=== PATIENT | male | born 1970 | race Caucasian/White ===

== ENCOUNTER 2017-10-26 17:58 | Emergency (ER) | payer BC, OTHER ==
[~2017-10-26] VITALS: Ht 175.3 cm; Wt 85.8 kg
[~2017-10-26 17:58] MED LIST: ETAN50IN2 SQ
[2017-10-26] MEDS ORDERED: MAGNESIUM SULFATE 1GM / D5W 1 GM BAG IV STA (18:16)
[2017-10-26] MEDS ORDERED: PROCHLORPERAZINE 5 MG/ML 2 ML VIAL IV STA (18:16)
[2017-10-26] MEDS ORDERED: DiphenhydrAMINE HCL 50 MG/ML VIAL IV STA (18:16)
[2017-10-26] MEDS ORDERED: KETOROLAC TROMETHAMINE 30 MG/ML VIAL IV STA (18:16)
[2017-10-26 18:18] VITALS: Ht 175.3 cm; Wt 85.8 kg
[2017-10-26 18:23] VITALS: O2SAT 94
[2017-10-26] MEDS ORDERED: ETAN50IN2 SC (18:36)
[2017-10-26 18:41] LABS: BASO % 0.3 %; BASO ABS # 0.06 K/uL (0-0.2); COMPLETE YES; EOS % 0.3 %; HEMATOCRIT 46.3 % (42-52); IG% 0.4 %; LYMPH % 7.5 %; LYMPH ABS # 1.41 K/uL (1.2-3.4); MEAN CELL VOLUME 92.4 fL (80-100); MEAN CORPUSCULAR HEMOGLOBIN 32.5 pg (25-34); MEAN CORPUSCULAR HGB CONC 35.2 g/dl (32-36); MEAN PLATELET VOLUME 10.3 fL (7.4-10.4); MONO % 6.5 %; PLATELET COUNT 243 K/uL (130-400); RED BLOOD COUNT 5.01 M/uL (4.7-6.1); WHITE BLOOD COUNT 18.73 K/uL (4.8-10.8)
[2017-10-26 19:02] LABS: BUN/CREATININE RATIO 10.3 (10-20); CALCIUM 8.6 mg/dl (8.5-10.1); POTASSIUM 3.2 mmol/L (3.5-5.1)
[2017-10-26 19:05] LABS: ALB/GLOB RATIO 0.8 (0.9-2)
[2017-10-26 19:06] LABS: URINE APPEARANCE CLEAR (CLEAR); URINE BILIRUBIN NEG (NEG); URINE COLOR YELLOW; URINE EPITHELIAL CELL AUTO 0-5 /lpf (0-5); URINE NITRITE NEG (NEG); URINE SPECIFIC GRAVITY 1.024 (1.000-1.030); UROBILINOGEN NEG (NEG)
[2017-10-26 19:08] LABS: MANUAL MICROSCOPIC REQUIRED? NO; REVIEW REQ? NO
--- NOTE | 2017-10-26 19:23 | DIAGNOSTIC IMAGING REPORT ---
CHEST ONE VIEW PORTABLE CLINICAL HISTORY: 47 years-old Male presenting with Pt c/o headache. TECHNIQUE: Portable upright AP view of the chest was obtained. COMPARISON: None. FINDINGS: Cardiomediastinal silhouette normal. Bandlike opacity at the right lung base. Lungs and pleural spaces otherwise clear. Osseous structures normal. Upper abdomen normal. IMPRESSION: 1. Bandlike opacity at the right lung base likely atelectasis or scarring. No convincing evidence of acute cardiopulmonary disease. Electronically signed by: Kobi Tang M.D. 10/26/2017 7:21 PM Dictated Date/Time: 10/26/2017 7:20 PM
--- NOTE | 2017-10-26 19:29 | EMERGENCY ROOM VISIT NOTE ---
History Report prepared by Rajesh: Leslie Rose Under the Supervision of: Dr. Jarvis Mills M.D. First contact with patient: 18:04 Chief Complaint: FLU LIKE SX Stated Complaint: FLU History of Present Illness The patient is a 47 year old male who presents to the Emergency Room with complaints of persistent flu symptoms starting yesterday. He has felt fatigued and has body aches. He has mostly been resting for the past 24 hours. He took Nyquil 3-4 hours ago and Dayquil this morning. He has a frontal headache which is close to the worst headache of his life. He normally does not get headaches. His states that it sounds like he has strep. He did not have a flu shot this year. He has been on Enbrel for psoriasis since 2002. Source of History: patient, spouse/significant other Onset: yesterday Position: other (global) Quality: other (flu symptoms) Timing: other (persistent) Associated Symptoms: + headache, + fatigue Note: Pt reports body aches. Review of Systems See HPI for pertinent positives & negatives. A total of 10 systems reviewed and were otherwise negative. Past Medical & Surgical Medical Problems: (1) Asthma Surgical Problems: (1) History of bilateral inguinal herniorrhaphies Family History Unknown Social History Smoking Status: Current Every Day Smoker Alcohol Use: occasionally Marital Status: Occupation Status: employed Current/Historical Medications Scheduled Amoxicillin & Pot Clavulanate (Augmentin 875-125 mg), 1 TAB PO BID Etanercept (Enbrel), 50 MG SC [id number] Allergies Coded Allergies: No Known Allergies (Unverified , 08/04/15) Physical Exam Vital Signs Date Time Temp Pulse Resp B/P (MAP) Pulse Ox O2 Delivery O2 Flow Rate FiO2 10/26/17 20:10 37.4 90 18 134/83 98 10/26/17 19:56 90 18 134/83 98 Room Air 10/26/17 18:23 94 Room Air 10/26/17 18:00 37.4 125 20 143/84 94 Room Air Physical Exam GENERAL: Patient is a healthy-appearing well-nourished male HEAD: Normocephalic atraumatic EYES: Ocular movements intact pupils equal and react to light OROPHARYNX mucous membranes are moist no exudates present no erythema or edema present NECK: Supple no nuchal rigidity. No evidence of meningitis or encephalitis on exam. CHEST: Good equal expansion LUNGS: Clear and equal to auscultation CARDIAC: Normal S1 and S2 ABDOMEN: Soft nontender no guarding BACK: No CVA tenderness EXTREMITIES: No pain upon palpation normal muscle strength in all groups no clubbing cyanosis or edema NEURO: Patient is following commands and answering questions appropriately. Alert and oriented x3 Cranial Nerves 2-12 grossly intact Medical Decision & Procedures ER Provider Diagnostic Interpretation: X-ray results as stated below per interpretation by me and the radiologist. Radiology results as stated below per my review and radiologist interpretation: CHEST ONE VIEW PORTABLE CLINICAL HISTORY: 47 years-old Male presenting with Pt c/o headache. TECHNIQUE: Portable upright AP view of the chest was obtained. COMPARISON: None. FINDINGS: Cardiomediastinal silhouette normal. Bandlike opacity at the right lung base. Lungs and pleural spaces otherwise clear. Osseous structures normal. Upper abdomen normal. IMPRESSION: 1. Bandlike opacity at the right lung base likely atelectasis or scarring. No convincing evidence of acute cardiopulmonary disease. Electronically signed by: Kobi Tang M.D. 10/26/2017 7:21 PM Dictated Date/Time: 10/26/2017 7:20 PM HEAD WITHOUT CONTRAST (CT) CLINICAL HISTORY: 47 years-old Male presenting with Pt c/o headache. TECHNIQUE: Multidetector CT imaging of the head was performed without the use of intravenous contrast. IV contrast: None. A dose lowering technique was used consistent with the principles of ALARA (as low as reasonably achievable). COMPARISON: None. CT DOSE (mGy.cm): The estimated cumulative dose is 1225.46 mGy.cm. FINDINGS: Bridge Expert topogram: Unremarkable. Ventricles and sulci normal in size. Brain parenchyma normal in appearance with preserved scales-white differentiation. No mass effect or midline shift. No hemorrhage or acute territorial infarct. No extra-axial fluid collection. Paranasal sinuses and mastoid air cells clear. Calvarium intact. IMPRESSION: 1. No acute intracranial abnormality. Electronically signed by: Kobi Tang M.D. 10/26/2017 7:36 PM Dictated Date/Time: 10/26/2017 7:35 PM Laboratory Results 10/26/17 18:30 Red Blood Count 5.01, Mean Corpuscular Volume 92.4, Mean Corpuscular Hemoglobin 32.5, Mean Corpuscular Hemoglobin Concent 35.2, Mean Platelet Volume 10.3, Neutrophils (%) (Auto) 85.0, Lymphocytes (%) (Auto) 7.5, Monocytes (%) (Auto) 6.5, Eosinophils (%) (Auto) 0.3, Basophils (%) (Auto) 0.3, Neutrophils # (Auto) 15.91, Lymphocytes # (Auto) 1.41, Monocytes # (Auto) 1.22, Eosinophils # (Auto) 0.06, Basophils # (Auto) 0.06 10/26/17 18:30 Test 10/26/17 18:14 10/26/17 18:30 10/26/17 18:50 Influenza Type A (RT-PCR) Neg for Influ A (NEG) Influenza Type A Antigen Neg for Influ A (NEG) Influenza Type B Antigen Neg for Influ B (NEG) Influenza Type B (RT-PCR) Neg for Influ B (NEG) White Blood Count 18.73 K/uL (4.8-10.8) Red Blood Count 5.01 M/uL (4.7-6.1) Hemoglobin 16.3 g/dL (14.0-18.0) Hematocrit 46.3 % (42-52) Mean Corpuscular Volume 92.4 fL (80-100) Mean Corpuscular Hemoglobin 32.5 pg (25-34) Mean Corpuscular Hemoglobin Concent 35.2 g/dl (32-36) Platelet Count 243 K/uL (130-400) Mean Platelet Volume 10.3 fL (7.4-10.4) Neutrophils (%) (Auto) 85.0 % Lymphocytes (%) (Auto) 7.5 % Monocytes (%) (Auto) 6.5 % Eosinophils (%) (Auto) 0.3 % Basophils (%) (Auto) 0.3 % Neutrophils # (Auto) 15.91 K/uL (1.4-6.5) Lymphocytes # (Auto) 1.41 K/uL (1.2-3.4) Monocytes # (Auto) 1.22 K/uL (0.11-0.59) Eosinophils # (Auto) 0.06 K/uL (0-0.5) Basophils # (Auto) 0.06 K/uL (0-0.2) RDW Standard Deviation 44.2 fL (36.4-46.3) RDW Coefficient of Variation 13.1 % (11.5-14.5) Immature Granulocyte % (Auto) 0.4 % Immature Granulocyte # (Auto) 0.07 K/uL (0.00-0.02) Anion Gap 6.0 mmol/L (3-11) Est Creatinine Clear Calc Drug Dose 98.1 ml/min Estimated GFR () 102.7 Estimated GFR (Non- 88.6 BUN/Creatinine Ratio 10.3 (10-20) Calcium Level 8.6 mg/dl (8.5-10.1) Total Bilirubin 0.5 mg/dl (0.2-1) Aspartate Amino Transf (AST/SGOT) 14 U/L (15-37) Alanine Aminotransferase (ALT/SGPT) 31 U/L (12-78) Alkaline Phosphatase 98 U/L (45-117) Total Creatine Kinase 67 U/L (39-308) Total Protein 7.9 gm/dl (6.4-8.2) Albumin 3.6 gm/dl (3.4-5.0) Globulin 4.3 gm/dl (2.5-4.0) Albumin/Globulin Ratio 0.8 (0.9-2) Lyme Disease IgG Antibody NEG (NEG) Lyme Disease IgM Antibody NEG (NEG) Monoscreen NEG (NEG) Urine Color YELLOW Urine Appearance CLEAR (CLEAR) Urine pH 5.0 (4.5-7.5) Urine Specific [place] 1.024 (1.000-1.030) Urine Protein NEG (NEG) Urine Glucose (UA) NEG (NEG) Urine Ketones 1+ (NEG) Urine Occult Blood TRACE (NEG) Urine Nitrite NEG (NEG) Urine Bilirubin NEG (NEG) Urine Urobilinogen NEG (NEG) Urine Leukocyte Esterase NEG (NEG) Urine WBC (Auto) 1-5 /hpf (0-5) Urine RBC (Auto) 5-10 /hpf (0-4) Urine Hyaline Casts (Auto) 0 /lpf (0-5) Urine Epithelial Cells (Auto) 0-5 /lpf (0-5) Urine Bacteria (Auto) NEG (NEG) Labs reviewed by ED physician. Medications Administered Medications (Trade) Dose Ordered Sig/Harini Route Start Time Stop Time Status Last Admin Dose Admin Ketorolac Tromethamine (Toradol Inj) 30 mg NOW STAT IV 10/26/17 18:16 10/26/17 18:17 DC 10/26/17 18:43 30 MG Prochlorperazine Edisylate (Compazine Inj) 10 mg NOW STAT IV 10/26/17 18:16 10/26/17 18:17 DC 10/26/17 18:43 10 MG Diphenhydramine HCl (Benadryl Inj) 50 mg NOW STAT IV 10/26/17 18:16 10/26/17 18:17 DC 10/26/17 18:43 50 MG Magnesium Sulfate (Magnesium Sulfate) 1 gm NOW STAT IV 10/26/17 18:16 10/26/17 18:17 DC 10/26/17 18:43 1 GM Potassium Chloride (Lashawn Ciel Elix) 40 meq NOW STAT PO 10/26/17 19:32 10/26/17 19:34 DC 10/26/17 19:52 40 MEQ Amoxicillin/ Clavulanate Potassium (Augmentin Tab) 875 mg ONE ONCE PO 10/26/17 20:00 10/26/17 20:01 DC 10/26/17 20:06 875 MG Amoxicillin/ Clavulanate Potassium (Augmentin Tab) 875 mg BID ONCE PO 10/26/17 21:00 10/26/17 21:00 DC 10/26/17 20:06 875 MG ECG Indication: tachycardia Rate (beats per minute): 109 Rhythm: sinus tachycardia Findings: no acute ischemic change, no ectopy, other (old anterior infarct) ED Course 1806: Past medical records reviewed. The patient was evaluated in room B5. A complete history and physical examination was performed. 1815: Magnesium Sulfate 1 gm IV, Benadryl Inj 50 mg IV, Compazine Inj 10 mg IV, Toradol Inj 30 mg IV. 1931: Potassium Chloride 40 meq PO. 1950: I reevaluated the patient. He is feeling better. I offered an LP but he refused. He will be started on Augmentin. I discussed results and treatment plan with the patient. He verbalizes agreement and understanding. The patient is ready for discharge. 2000: Augmentin Tab 875 mg PO. 2100: Augmentin Tab 875 mg PO. Medical Decision Differential diagnosis: Etiologies such as migraine headache, meningitis, sinusitis, CO exposure, ICH, SAH, infection, tumor, headache, sinus thrombosis, arterial dissection, as well as others were entertained. This is a 47-year-old male who presents emergency department complaining of pharyngitis along with a headache. I will note that the patient has a large elevation in his white blood cell count at 18,000. The patient was sent for CAT scan of the head because I do not have a good source as to why the patient has an elevation in his white blood count cell count. He was given Toradol Compazine and Benadryl. Repeat examination revealed improvement the patient's symptoms. At this point I did recommend a lumbar puncture for the patient however he is refusing this. He wishes to try the antibiotics for his pharyngitis. I stressed the need to return for an LP if he develops severe headache and the patient develops neck pain along with fevers. Both patient and the are in agreement with the treatment plan. Medication Reconcilliation Current Medication List: was personally reviewed by me Blood Pressure Screening Patient's blood pressure: Elevated blood pressure Blood pressure disposition: Referred to PCP Impression Primary Impression: Pharyngitis Scribe Attestation The scribe's documentation has been prepared under my direction and personally reviewed by me in its entirety. I confirm that the note above accurately reflects all work, treatment, procedures, and medical decision making performed by me. Departure Information Dispostion Home / Self-Care Prescriptions Amoxicillin & Pot Clavulanate (Augmentin 875-125 mg) 1 Tab Tab 1 TAB PO BID for 10 Days, #20 TAB Prov: Jarvis Mills MD 10/26/17 Referrals Patricia Dumont M.D. (MEDICAL) (PCP) Alicia Ash Forms HOME CARE DOCUMENTATION FORM, IMPORTANT VISIT INFORMATION Patient Instructions ED Pharyngitis Viral Report Pending, My [facility] Additional Instructions Return if severe headache or neck pain develop You were found to have an elevated blood pressure today (>120 sytolic or >90 diastolic). Per medicare guidelines, you need to follow up with this blood pressure screening with your Primary Care Physician (PCP). For a new PCP call [phone]. Culture results are usually available in approx 48 hours You have been examined and treated today on an emergency basis only. This is not a substitute for, or an effort to provide, complete comprehensive medical care. It is impossible to recognize and treat all injuries or illnesses in a single emergency department visit. It is therefore important that you follow up closely with Dr Dumont. Call as soon as possible for an appointment. Thank you for your time and consideration. I look forward to speaking with you again soon. Please don't hesitate to call us if you have any questions. Problem Qualifiers Primary Impression: Pharyngitis Pharyngitis/tonsillitis etiology: unspecified etiology Qualified Codes: J02.9 - Acute pharyngitis, unspecified
[2017-10-26] MEDS ORDERED: POTASSIUM CHLORIDE 20 MEQ/15 ML UDC PO STA (19:32)
--- NOTE | 2017-10-26 19:38 | DIAGNOSTIC IMAGING REPORT ---
HEAD WITHOUT CONTRAST (CT) CLINICAL HISTORY: 47 years-old Male presenting with Pt c/o headache. TECHNIQUE: Multidetector CT imaging of the head was performed without the use of intravenous contrast. IV contrast: None. A dose lowering technique was used consistent with the principles of ALARA (as low as reasonably achievable). COMPARISON: None. CT DOSE (mGy.cm): The estimated cumulative dose is 1225.46 mGy.cm. FINDINGS: [employer] Clerk topogram: Unremarkable. Ventricles and sulci normal in size. Brain parenchyma normal in appearance with preserved scales-white differentiation. No mass effect or midline shift. No hemorrhage or acute territorial infarct. No extra-axial fluid collection. Paranasal sinuses and mastoid air cells clear. Calvarium intact. IMPRESSION: 1. No acute intracranial abnormality. Electronically signed by: Kobi Tang M.D. 10/26/2017 7:36 PM Dictated Date/Time: 10/26/2017 7:35 PM
[2017-10-26] MEDS ORDERED: AMOX875T PO (19:56)
[2017-10-26 19:57] LABS: INFLUENZA A PCR Neg for Influ A (NEG); INFLUENZA B PCR Neg for Influ B (NEG)
[2017-10-26] MEDS ORDERED: AMOXICILLIN/CLAVULANATE TAB 875 MG TAB PO ONE ×2 (20:00→21:00)
[2017-10-26] MEDS ORDERED: EMPTY 8 DRAM VIAL ONE (20:03)
[2017-10-26 20:10] VITALS: BP 134/83; PULSE 90; TEMP 37.4; O2SAT 98
[2017-10-26 21:20] LABS: LYME DISEASE AB IGG NEG (NEG); LYME DISEASE AB IGM NEG (NEG)
--- NOTE | 2017-10-27 18:13 | Pharmacy Progress Note ---
ED Pharmacist Culture FollowUp Date of Service: Oct 27, 2017. Patient was sent home with a prescription for augmentin X 10 days, which should cover the group A strep growing from the patient's throat culture. Attempted to contact patient to inform him of the result and left a voicemail to return call.
== END 2017-10-26 20:11 | disposition home or self-care (01) ==
LOC: C.EDB 17:59
DX: J02.9 Acute pharyngitis, unspecified (principal); J45.909 Unspecified asthma, uncomplicated; F17.210 Nicotine dependence, cigarettes, uncomplicated